=== PATIENT | male | born 2000 | race Hispanic/Latino ===

== ENCOUNTER 2023-04-02 07:43 | Emergency (ER) | payer OTHER ==
[2023-04-02] MEDS ORDERED: Boostrix 0.5 ML (Tdap) VIAL (>/=7 yrs of age) ONE (08:12)
[2023-04-02] MEDS ORDERED: Lidocaine 1% (PF) 30 ML VIAL ONE (08:19)
[2023-04-02] MEDS ORDERED: Ibuprofen 200 MG TAB ONE (08:21)
[2023-04-02] MEDS ORDERED: Bacitracin 1 PK ONE (08:50)
== END 2023-04-02 09:00 | disposition home or self-care (01) ==
LOC: NAV ERS 07:43
DX: S60.351A Superficial foreign body of right thumb, initial encounter (principal); W29.8XXA Contact with other powered hand tools and household machinery, initial encounter; Z23 Encounter for immunization
CPT/HCPCS: 64450; 90471; 90715; J2001

== ENCOUNTER 2023-09-18 09:02 | Emergency (ER) | payer OTHER ==
[2023-09-18] MEDS ORDERED: Lidocaine 1% (PF) 30 ML VIAL ONE (09:18)
[2023-09-18] MEDS ORDERED: Bacitracin 1 PK ONE (09:48)
== END 2023-09-18 09:45 | disposition home or self-care (01) ==
LOC: NAV ERS 09:02
DX: S61.412A Laceration without foreign body of left hand, initial encounter (principal); W26.8XXA Contact with other sharp object(s), not elsewhere classified, initial encounter
CPT/HCPCS: 12002; 99282; J2001